=== PATIENT | female | born 1940 | race Caucasian/White ===

== ENCOUNTER 2021-05-18 07:40 | Inpatient (IN) ==
--- NOTE | 2021-05-11 12:24 | Anesthesiology Consultation ---
Date of Service May 11, 2021 Assessment & Plan (1) Encounter for pre-operative examination: ECG 04/21/2021: LBBB without previous ECGs for comparison. Request to be sent to PCP regarding any additional information. Pleural effusion following emergent gastric surgery reportedly small, chart listing pulmonology provider as Gene Pham. Request to be sent to pulm for last note. COVID: 05/13 at [facility]. Chart Review Chart Review: Pending: Refer to Additional Notes / Consult section and Patient NOT seen in Pre Admission Testing History Surgery Operation Date: 05/18/21 10:15 Proposed Procedures p Open Repair Ventral Hernia With Mesh - Reanna Julio MD Height/Weight Height: 5 ft 8 in Weight: 81.647 kg Allergies Allergy/AdvReac Type Severity Reaction Status Date / Time amoxicillin Allergy Intermediate HIVES Unverified 05/11/21 10:22 latex Allergy blisters Verified 05/11/21 10:22 Medications Home Medications Medication Instructions Recorded Confirmed Last Taken acetaminophen 325 mg capsule 325 mg PO QID PRN 05/11/21 05/11/21 Unknown (Tylenol) aripiprazole 5 mg tablet (Abilify) 2.5 mg PO HS 05/11/21 05/11/21 Unknown cholecalciferol (vitamin D3) 25 25 mcg PO 5XD 05/11/21 05/11/21 Unknown mcg (1,000 unit) tablet (Vitamin D3) magnesium hydroxide 400 mg/5 mL 400 mg PO HS 05/11/21 05/11/21 Unknown oral suspension (Milk of Magnesia) Past Medical History Medical History Anxiety Fibromyalgia History of ileus Osteoporosis Pleural effusion says developed following emergent gastric surgery in 2019 -- has had drained in past but still with "small" pleural effusion that is being monitored --> follows with [facility] Spinal stenosis Ventral hernia Past Family History Family History Other No family history of adverse response to anesthesia Past Surgical History Surgical History History of appendectomy History of colonoscopy History of esophagogastroduodenoscopy (EGD) History of exploratory laparotomy History of gastric surgery emergent surgery 2019 r/t large hiatal hernia History of repair of hiatal hernia History of thoracentesis last in 2019 Social History Smoking Status: Never smoker Do You Dip or Chew Tobacco: No Hx Alcohol Use: No Hx Substance Use: No substance use type: does not use Testing Laboratory Results BUN 10 Cr 0.9 Na 140 K 4.8 Chl 102 CO2 27 glucose 105 WBC 8 RBC 4 Hgb 14.6 Hct 44 Plt 336 Electrocardiogram Date: 04/21/21 Normal sinus rhythm. Possible left atrial enlargement. LBBB. No previous ECGs for comparison.
[~2021-05-18 07:40] MED LIST: CLINDAMYCIN 600 MG/54 ML BAG IV SCH; LACTATED RINGER'S 1,000 ML IV SCH
[2021-05-18] MEDS ORDERED: BUPIVACAINE 0.5 % 5 MG/1 ML MPF 30ML VIAL ONE (09:42)
[2021-05-18] MEDS ORDERED: LIDOCAINE 1% LOCAL 20 ML VIAL ONE (09:42)
[2021-05-18] MEDS ORDERED: BACITRACIN OINT 15 GM TUBE ONE (09:42)
--- NOTE | 2021-05-18 09:44 | History & Physical Bridge Note ---
Date of Service May 18, 2021 History & Physical Bridge Note I have examined the patient, reviewed the History & Physical and in the interval since the performance of the History & Physical I have noted the following changes of clinical significance: no changes noted
[2021-05-18] MEDS ORDERED: fentaNYL citrate 100 MCG/2 ML VIAL ONE ×2 (10:46→11:58)
[2021-05-18] MEDS ORDERED: ATROPINE SULFATE 0.1 MG/ML 10ML SYR IV PRN (11:29)
[2021-05-18] MEDS ORDERED: ePHEDrine sulfate 50 MG/ML AMP IV PRN (11:29)
[2021-05-18] MEDS ORDERED: ONDANSETRON INJ 2 MG/ML 2 ML VIAL IV PRN ×2 (11:29→12:51)
[2021-05-18] MEDS ORDERED: fentaNYL citrate 100 MCG/2 ML VIAL IV PRN (11:29)
[2021-05-18] MEDS ORDERED: PROPOFOL IV EMULSION 10 MG/ML 20 ML VIAL IV ONE (11:51)
[2021-05-18] MEDS ORDERED: PHENYLEPHRINE HCL 10 MG/ML VIAL ONE (11:51)
[2021-05-18] MEDS ORDERED: LIDOCAINE 2% 2 ML VIAL/AMP(20MG/ML) INFIL ONE (11:51)
[2021-05-18] MEDS ORDERED: ePHEDrine sulfate 50 MG/ML SYR ONE (11:51)
[2021-05-18] MEDS ORDERED: DEXAMETHASONE SOD INJ 4 MG/ML VIAL ONE (11:51)
[2021-05-18] MEDS ORDERED: ROCURONIUM BROMIDE 10 MG/ML 5 ML VIAL IV ONE (11:51)
[2021-05-18] MEDS ORDERED: NEOSTIGMINE METHYLSULFATE 1 MG/ML 10ML VIAL ONE (11:51)
[2021-05-18] MEDS ORDERED: GLYCOPYRROLATE 0.2 MG/ML VIAL ONE (11:51)
[2021-05-18] MEDS ORDERED: ONDANSETRON INJ 2 MG/ML 2 ML VIAL ONE (11:51)
[2021-05-18] MEDS ORDERED: ACETAMINOPHEN 1000 MG/100 ML IV IV ONE (11:53)
[2021-05-18] MEDS ORDERED: HYDROmorphone INJ 2 MG/ML SYR/VIAL ONE (12:13)
--- NOTE | 2021-05-18 12:40 | Post Operative Brief Note ---
Immediate Post Op Note v1 Date of Surgery May 18, 2021 Pre & Post Diagnosis Operation Date: 05/18/21 09:40 Pre-Op Diagnosis: multiple Hernia of Abdominal Wall Post-Op Diagnosis: multiple Hernia of Abdominal Wall I identified the patient and participated in the time-out.: Yes Procedure Operation Date: 05/18/21 09:40 Actual Procedures p Open Ventral Hernia Repair with Mesh , lysis of adhesion, - Reanna Julio MD Surgeon Reanna Julio MD Risk Control Specialist surgical oncologist Estimated Blood Loss 10 Findings Consistent with Post-Op Diagnosis 4 ventral hernia, total hernia size about 12x20 cm Fluids 1000ml Specimens hernia sac Anesthesia Type General Complications none Disposition Accompanied Patient To Recovery: Yes
--- NOTE | 2021-05-18 14:38 | Anesthesiology Progress Note ---
Date of Service May 18, 2021 Anesthesia Post Procedure Vital Signs Vital Signs: Temp Pulse Pulse Resp BP BP Pulse Ox 05/18/21 14:15 60 13 160/71 H 99 05/18/21 14:00 72 11 L 156/64 H 98 05/18/21 13:45 57 L 13 147/75 H 98 05/18/21 13:30 36.2 C L 80 19 160/90 H 99 05/18/21 13:20 67 14 159/77 H 99 05/18/21 13:10 76 14 147/68 H 99 05/18/21 13:00 78 17 158/83 H 100 05/18/21 12:50 36.2 C L 84 17 147/78 H 99 05/18/21 08:17 36.8 C 100 H 20 181/88 H 97 Pain Intensity Abdomen: Pain Intensity: 2 Transfer of Care Handoff Completed per policy Notes Mental Status: alert / awake / arousable Patient Amnestic to Procedure: Yes Nausea / Vomiting: adequately controlled Pain: adequately controlled Airway Patency, RR, SpO2: stable & adequate BP & HR: stable & adequate Hydration State: stable & adequate Anesthetic Complications: no major complications apparent
[2021-05-18] MEDS: LACTATED RINGER'S 1,000 ML IV SCH ×2 (14:55→22:46)
[2021-05-18] MEDS ORDERED: MAGNESIUM HYDROXIDE SUSP 30 ML UDC PO PRN (15:01)
[2021-05-18] MEDS: HYDROmorphone INJ 0.5 MG/0.5 ML SYR IV PRN (15:02)
[2021-05-18] MEDS ORDERED: INFLUENZA VACCINE HIGH DOSE PF 65+ 0.7 ML SYR IM ONE (15:30)
[2021-05-18] MEDS: CIPROFLOXACIN / D5W 400 MG/200 ML BAG IV SCH (16:52)
[2021-05-18] MEDS: CHOLECALCIFEROL 1,000 UNITS 25 MCG TAB PO SCH ×2 (16:54→17:46)
--- NOTE | 2021-05-18 17:30 | Consultation ---
Date of Consultation May 18, 2021 Assessment & Plan (1) Ventral hernia: 80 yr old F who underwent elective open ventral hernia repair with mesh of multiple hernias, 4, total hernia size [id number] POD #[address] Julio. EBL: 10ml tolerated procedure well pain/wound management per surgery IV antibiotics per surgery monitor h/h encourage incentive spirometry clear liquid diet, advance as per surgery consult PT/OT post operatively is hypertensive, 161/90, likely in setting of pain She was started on metoprolol tartrate by general surgery - will discontinue for now and monitor as pain is more controlled (2) Depression with anxiety: Continue Abilify Mood stable (3) Osteoporosis: Continue vitamin D (4) Constipation: Placed on senna S daily She takes milk of mag at home Dispo: med/surg PCP: Dr. Luevano FULL CODE Pt was seen and examined in collaboration with Dr. Montano, please see addendum Thank you for this consultation. We will follow the patient with you during their hospital stay. You can reach a member of the [facility] Hospitalist Team 14/03 via hospitalist role on tiger text. Supervising Physician Co-Signing Physician Notes Patient is an 80-year-old female with history of anxiety, depression and other medical problems was consulted for postop medical management after having open ventral hernia repair with mesh, lysis of adhesions by Dr. Julio. Patient is doing well postoperatively. Pain at surgical site is currently controlled. Denies any chest pain, dyspnea, dizziness, nausea. Postoperatively blood pressure was noted to be elevated. On exam patient is moderately built and nourished, not in distress, normocephalic atraumatic, lungs are clear to auscultation, normal breath sounds, S1-S2, no murmur, no pedal edema, abdomen: Surgical site in dressing,+ binder, decreased bowel sounds, alert, awake, oriented, grossly no focal deficits. Patient is consulted for postop medical management. Wound care, diet as per primary team. Monitor for postop anemia. Continue incentive spirometry. Will administer a dose of amlodipine for blood pressure control. Continue IV fluids for now. I personally reviewed the record. Patient is interviewed and examined at bedside. Patient's care is coordinated with Amanda Tanner PA-C. Please refer to the documentation above for details of patient's presentation and for discussion of other issues. History of Present Illness Requesting Physician: Dr. Julio Reason for Consultation: Post op medical management. Attending Physician: Reanna Julio MD History of Present Illness This is a 80-year-old female who has significant past medical history of depression with anxiety, HLD, GERD, hiatal hernia, restless leg syndrome, macular degeneration, osteoporosis, history of right pleural effusion status post thoracentesis negative for malignancy who presents for elective hernia repair by Dr. Julio. She tolerated the procedure well. Unfortunately patient had severe hiatal hernia in the past with rupture requiring emergent surgery. Approximately 1 to 2 years ago she began developing pain and protrusion at incision sites. This has caused her constipation requiring her to take daily laxatives. Currently she complains of postoperative pain and, "cramping." She denies any other issues. She denies any fever, chills, sweats, lightheadedness, dizzy, chest pain, shortness with, cough, nausea, vomiting, dysuria, increased urgency or frequency with urination. She did not move her bowels today. She currently complains of feeling hot. Despite being 80 she is relatively healthy. She does lives alone and is , but has a man friend of over 7 years. She typically walks with a walker. She does suffer from depression with anxiety for which is controlled with Abilify. Allergies Allergy/AdvReac Type Severity Reaction Status Date / Time amoxicillin Allergy Intermediate HIVES Unverified 05/18/21 08:12 latex Allergy blisters Verified 05/18/21 08:12 Home Medications Medication Instructions Recorded Confirmed Type acetaminophen 325 mg capsule 325 mg PO QID PRN 05/11/21 05/18/21 History (Tylenol) aripiprazole 5 mg tablet (Abilify) 2.5 mg PO HS 05/11/21 05/18/21 History cholecalciferol (vitamin D3) 25 25 mcg PO 5XD 05/11/21 05/18/21 History mcg (1,000 unit) tablet (Vitamin D3) magnesium hydroxide 400 mg/5 mL 400 mg PO HS PRN 05/11/21 05/18/21 History oral suspension (Milk of Magnesia) Patient History Medical History (Updated 05/18/21 @ 17:48 by Amanda Nelson PA-C) Anxiety Constipation Fibromyalgia History of ileus Osteoporosis Pleural effusion says developed following emergent gastric surgery in 2019 -- has had drained in past but still with "small" pleural effusion that is being monitored --> follows with [facility] Spinal stenosis Ventral hernia Surgical History History of appendectomy History of colonoscopy History of esophagogastroduodenoscopy (EGD) History of exploratory laparotomy History of gastric surgery emergent surgery 2019 r/t large hiatal hernia History of repair of hiatal hernia History of thoracentesis last in 2019 Family History (Updated 05/18/21 @ 17:30 by Amanda Nelson PA-C) Other Breast cancer Colorectal cancer No family history of adverse response to anesthesia Social History Smoking Status: Never smoker Second Hand Exposure: No; Do You Dip or Chew Tobacco: No; Hx Alcohol Use: No Hx Substance Use: No Preferred Language: French Communication Ability: Effective Juvenile Probation Officer Required: No Beliefs That Will Affect Care: None and Episcopalian Episcopalian Beliefs: Orthodox Current Living Situation: Alone Feels Safe at Home: Yes Safety Concerns: Feels Safe At This Time Assistive Devices: Denture - Upper, Glasses and Oxygen - Continuous Review of Systems Review of Systems: All systems reviewed & are unremarkable except as noted in HPI & below Physical Exam Physical Exam: Constitutional: WD/WN, F vitals as above, NAD, sitting up in bed, pleasant, conversing easily Head: Normocephalic, Atraumatic Eyes: PERRL, conjunctivae normal, anicteric sclerae ENMT: external ear and nose normal, oropharynx normal Neck: trachea midline, no thyromegaly normal visual inspection Respiratory: normal respiratory effort, lungs clear to auscultation, no wheeze, rales, rhonchi. Normal insp/exp effort, no accessory muscle use Cardiovascular: RRR, 2/6SEM RUSB, no edema, b/l SCDS Vessels: no JVD or carotid bruit Chest: normal inspection of chest Abdomen: + abd binder, normal bowel sounds, soft Musculoskeletal: no cyanosis or clubbing, AROM x 4 Skin: no rashes, warm and dry normal turgor Neurologic: PERRL, EOMI, accommodation nl, no face palsy, no dysarthria CN's II-XI intact bilaterally and moves all extremities Psychiatric: A+Ox3, euthymic affect : deferred Results & Data ([facility]) Vital Signs (Past 12 Hours) Vital Signs Temp Pulse Pulse Pulse Resp BP BP 05/18/21 16:40 36.3 C L 86 18 158/82 H 05/18/21 15:40 36.1 C L 100 H 16 169/91 H 05/18/21 15:05 36.2 C L 77 14 159/74 H 05/18/21 14:40 36.3 C L 61 14 172/91 H 05/18/21 14:15 60 13 160/71 H 05/18/21 14:00 72 11 L 156/64 H 05/18/21 13:45 57 L 13 147/75 H 05/18/21 13:30 36.2 C L 80 19 160/90 H 05/18/21 13:20 67 14 159/77 H 05/18/21 13:10 76 14 147/68 H 05/18/21 13:00 78 17 158/83 H 05/18/21 12:50 36.2 C L 84 17 147/78 H 05/18/21 08:17 36.8 C 100 H 20 181/88 H Pulse Ox 05/18/21 16:40 96 05/18/21 15:40 97 05/18/21 15:05 97 05/18/21 14:40 99 05/18/21 14:15 99 05/18/21 14:00 98 05/18/21 13:45 98 05/18/21 13:30 99 05/18/21 13:20 99 05/18/21 13:10 99 05/18/21 13:00 100 05/18/21 12:50 99 05/18/21 08:17 97 Laboratory Results No lab work to review CBC and CMP ordered for a.m. Diagnostic Findings CXR: Pre op Pleural-based opacity in right lung base similar to previous study representing either pleural effusion or pleural fibrosis, atelectasis and/or infiltrate in the right lung base has increased. 04/13/2021 She was seen and evaluated by pulmonology and was to undergo pleural effusion; however only small amount of fluid present and therefore not performed. Medications Administered Medication List Hydromorphone HCl (Hydromorphone Inj 0.5 Mg/0.5 Ml Syr) 0.5 mg IV Q6H PRN PRN Reason: Pain Stop: 06/01/21 14:39 Last Admin: 05/18/21 15:02 Dose: 0.5 mg Documented by: [id number] Lactated Ringer's (Lr) 1,000 mls @ 80 mls/hr IV .[id number] [facility] Stop: 06/17/21 14:59 Last Admin: 05/18/21 14:55 Dose: 80 mls/hr Documented by: [id number] Ciprofloxacin (Cipro / D5w) 400 mg in 200 mls @ 100 mls/hr IV Q12H [facility]; Protocol Stop: 05/19/21 14:59 Last Admin: 05/18/21 16:52 Dose: 100 mls/hr Documented by: [id number] Ondansetron HCl (Ondansetron Inj 2 Mg/Ml 2 Ml Vial) 4 mg IV Q6H PRN PRN Reason: Nausea Stop: 06/17/21 12:50 Last Admin: 05/18/21 15:02 Dose: 4 mg Documented by: [id number] Vitamin D (Cholecalciferol 1,000 Units 25 Mcg Tab) 1,000 units PO [id number] [facility] Stop: 06/17/21 15:59 Last Admin: 05/18/21 17:46 Dose: 1,000 units Documented by: [id number] Admin: 05/18/21 16:54 Dose: 1,000 units Documented by: [id number] Discontinued Medications Bacitracin (Bacitracin Oint 15 Gm Tube) Confirm Administered Dose 45 appln .ROUTE .STK-MED ONE Stop: 05/18/21 09:43 Last Admin: 05/18/21 12:25 Dose: 45 appln Documented by: [id number] Bupivacaine HCl (Bupivacaine 0.5 % 5 Mg/1 Ml Mpf 30ml Vial) Confirm Administered Dose 30 ml .ROUTE .STK-MED ONE Stop: 05/18/21 09:43 Last Admin: 05/18/21 12:17 Dose: 17.5 ml Documented by: [id number] Fentanyl Citrate (Fentanyl Citrate 100 Mcg/2 Ml Vial) 50 mcg IV Q5M PRN PRN Reason: PACU Use Only-Pain Stop: 05/18/21 19:29 Last Admin: 05/18/21 13:11 Dose: 50 mcg Documented by: [id number] Lactated Ringer's (Lr) 1,000 mls @ 15 mls/hr IV .Q24H [facility] Stop: 05/19/21 05:59 Last Infusion: 05/18/21 10:48 Dose: 0 mls/hr Documented by: [id number] Admin: 05/18/21 08:20 Dose: 15 mls/hr Documented by: [id number] Clindamycin Phosphate (Cleocin) 600 mg in 54 mls @ 100 mls/hr IV PREOP [facility] Stop: 05/18/21 18:00 Last Infusion: 05/18/21 14:54 Dose: 0 mls/hr Documented by: [id number] Admin: 05/18/21 10:48 Dose: 100 mls/hr Documented by: [id number] Lidocaine HCl (Lidocaine 1% Local 20 Ml Vial) Confirm Administered Dose 20 ml .ROUTE .K-MED ONE Stop: 05/18/21 09:43 Last Admin: 05/18/21 12:19 Dose: 17.5 ml Documented by: [id number] ECG Rate (beats per minute): 61 Rhythm: normal sinus Findings: + LBBB
[2021-05-18] MEDS ORDERED: amLODIPine BESYLATE 5 MG TAB PO PRN (18:06)
[2021-05-18] MEDS ORDERED: METOPROLOL TARTRATE 25 MG TAB PO SCH (21:00)
[2021-05-18] MEDS: ARIPiprazole 5 MG TAB PO SCH (21:18)
[2021-05-18] MEDS: DOCUSATE SODIUM/SENNA 50/8.6MG TAB PO SCH (21:18)
--- NOTE | 2021-05-18 22:41 | Operative Report (OR) ---
DATE OF PROCEDURE: 05/18/2021. PREOPERATIVE DIAGNOSIS: Multiple ventral hernias on abdominal wall. POSTOPERATIVE DIAGNOSIS: Multiple ventral hernias on abdominal wall. PROCEDURE: Open repair of multiple ventral hernia on abdominal wall with mesh. SURGEON: Reanna Julio MD. DISTRIBUTION SPECIALIST: Christine Ham PA-C. ANESTHESIA: General. ESTIMATED BLOOD LOSS: About 20 mL. FINDINGS: Four ventral hernias: 1. Ventral hernia size about 8 x 8 cm. 2. Ventral hernia size about 2 x 2 cm. 3. Ventral hernia size about 1 x 1 cm. 4. Ventral hernia size about 1 x 1 cm. COMPLICATIONS: None. INDICATIONS FOR THE PROCEDURE: This is an 80-year-old female who presented with symptomatic recurren ce multiple ventral hernias and I recommended to do open repair of multiple ventral hernias with mesh . I did talk to the patient about the benefit, risk, alternate procedure. I indicated the risks may include, but not limited to, such as bleeding, infection, hernia recurrence, complication related to mesh, seroma, injury to other organs, myocardial infarction, DVT, stroke, even . The patient u nderstands and she signed informed consent and I answered all questions. DETAILS OF PROCEDURE: After I identified the patient and verified the procedure, we brought the patrick ent to the OR, put the patient in the supine position on the OR table. The patient received SCD on b ilateral legs to prevent DVT. Also, patient received an IV for prophylactic antibiotic. The patient received general anesthesia without difficulty. Abdomen was prepped and draped in routine sterile f ashion. After timeout and the patient has a significant long midline scar. I removed the midline sc ar using a midline incision and get in the abdomen without difficulty. Again, a lot of adhesions. W e take down the adhesions, then we found the patient on the left side has one ventral hernia size abo ut 8 x 8 cm, also the left side below umbilicus there was the hernia of 2 x 2 cm, there were 2 small ventral hernias near the midline about 1 x 1 cm each. At this moment, once we mobilized the adhesion s and we take down the hernia sac, I sent to pathology and then I decided to use 1 mesh to cover 4 he rnias. The 4 hernias size combined to one about 12 x 20 cm. I chose a 15 x 26 cm mesh to repair the 4 hernias. I used 0 Ethibond suture mesh to the fascial layer continuous running and 360-degree. Re checked, the mesh seated nicely, no tension. Hemostasis obtained, then I closed the subcutaneous lay er by using 2-0 Vicryl continuous running, closed skin by using staple. Then, we put the dressing on . The patient tolerated the procedure well. All instrument, needle, sponge count were correct x2 at the end of the case. The patient was transferred to recovery room in stable condition. Later on, w koffi will admit the patient to the hospital overnight. After the procedure, I did talk to the patient ab out the OR finding and the procedure we did, patient understands. The specimen was sent to pathology . The licensed nursing assistant, Christine, was necessary for this procedure. Her role was exposure and retraction . Job ID: [id number]
[2021-05-18] MEDS: ACETAMINOPHEN 325 MG TAB PO PRN (22:47)
[2021-05-19] MEDS: HYDROmorphone INJ 0.5 MG/0.5 ML SYR IV PRN (03:37)
[2021-05-19] MEDS: CIPROFLOXACIN / D5W 400 MG/200 ML BAG IV SCH (03:38)
[2021-05-19] MEDS ORDERED: CLINDAMYCIN 600 MG/54 ML BAG IV SCH (06:00)
[2021-05-19] MEDS: CHOLECALCIFEROL 1,000 UNITS 25 MCG TAB PO SCH ×5 (06:18→15:55)
[2021-05-19 08:07] LABS: Hematocrit (blood only) 40.5 % (37-47); Hemoglobin 13.3 g/dL (12.0-16.0); Immature Granulocytes # (auto) 0.03 K/uL (0.00-0.02); Immature Granulocytes % (auto) 0.2 %; Lymphocytes # (auto) 1.71 K/uL (1.2-3.4); Lymphocytes % (auto) 11.5 %; Mean Corpuscular Hemoglobin 31.6 pg (25-34); Mean Corpuscular Hgb Conc 32.8 g/dL (32-36); Mean Corpuscular Volume 96.2 fL (80-100); Mean Platelet Volume 8.9 fL (7.4-10.4); Monocytes # (auto) 1.18 K/uL (0.11-0.59); Monocytes % (auto) 7.9 %; Neutrophils # (auto) 11.99 K/uL (1.4-6.5); Neutrophils % (auto) 80.4 %; Platelet Count 349 K/uL (130-400); RDW Coefficient of Variation 14.1 % (11.5-14.5); RDW Standard Deviation 49.7 fL (36.4-46.3); Red Blood Count 4.21 M/uL (4.2-5.4); White Blood Count 14.91 K/uL (4.8-10.8)
[2021-05-19 08:40] LABS: BUN Creatinine Ratio 17.5 (10-20); Calcium 9.3 mg/dl (8.5-10.1); Creatinine Clr Calc Pharmacy 61.2 ml/min; Est GFR (African American) 79.6 ml/min; Est GFR (Non-African American) 68.7 ml/min; Potassium 4.6 mmol/L (3.5-5.1)
[2021-05-19 08:43] LABS: Albumin Globulin Ratio 0.8 (0.9-2); Bilirubin,Total 0.6 mg/dl (0.2-1); Globulin 3.7 gm/dl (2.5-4.0); Total Protein 6.7 gm/dl (6.4-8.2)
[2021-05-19] MEDS: ACETAMINOPHEN 325 MG TAB PO PRN ×2 (08:51→15:55)
[2021-05-19] MEDS ORDERED: amLODIPine BESYLATE 5 MG TAB PO ONE (09:08)
--- NOTE | 2021-05-19 09:35 | Surgery Progress Note ---
Date of Service May 19, 2021 Assessment & Plan (1) Ventral hernia: Plan: POD # 1 s/p open ventral hernia repair x 4 with large mesh -afebrile, vitals stable other than hypertensive at times (after movement, standing up per patient) - no n,v - moderate postop pain with movement - leukocytosis of 14k today, likely postop Plan: Patient still with moderate postop pain which is limiting her movement. Advised patient of as needed narcotic as needed for pain. Can alternate with Tylenol. Given limited range of movement secondary to pain she likely will need further pain management prior to discharge. She lives at home alone but niece is planning to come stay with her once discharged. Regular diet for lunch continue postop abx repeat am cbc incentive spirometry SCDs Discussed with Dr. Julio who is to see patient later today Admission and Anticipated Discharge Date Admission Date: May 18, 2021 Subjective having moderate pain at belly button , just took two Tylenol for pain no nausea or vomiting no chest pain or shortness of breath wearing abdominal binder but it is uncomfortable sitting and lying down. States she plans to go home on discharge and her niece will be staying with her at home. No stairs in the house. Physical Exam Constitutional: WD/WN, vitals as above no acute distress and not ill appearing Respiratory: normal respiratory effort; no respiratory distress and no labored breathing Gastrointestinal (Abdomen): Inspection/Auscultation: abdomen normal to inspection, + abdominal surgical incision (covered with dry dressing) and + hypoactive bowel sounds; abdomen not distended and + abnormal bowel sounds Percussion/Palpation: + abdomen tender (midline at umbilicus) and abdomen soft; no guarding and abdomen not rigid Skin: no rashes, warm and dry Psychiatric: A+Ox3, euthymic affect Results & Data ([facility]) Vital Signs (Past 12 Hours) Vital Signs Temp Pulse Resp BP Pulse Ox 05/19/21 07:42 36.9 C 75 18 161/72 H 95 05/19/21 03:30 36.6 C 77 20 158/74 H 96 05/18/21 22:51 36.4 C L 73 16 175/73 H 96 Laboratory Results 05/19/21 05/19/21 Range/Units 07:20 07:20 WBC 14.91 H (4.8-10.8) K/uL RBC 4.21 (4.2-5.4) M/uL Hgb 13.3 (12.0-16.0) g/dL Hct 40.5 (37-47) % MCV 96.2 (80-100) fL MCH 31.6 (25-34) pg MCHC 32.8 (32-36) g/dL RDW Std Deviation 49.7 H (36.4-46.3) fL RDW Coeff of Leonel 14.1 (11.5-14.5) % Plt Count 349 (130-400) K/uL MPV 8.9 (7.4-10.4) fL Immature Gran % (Auto) 0.2 % Neut % (Auto) 80.4 % Lymph % (Auto) 11.5 % [place] % (Auto) 7.9 % Eos % (Auto) 0.0 % Baso % (Auto) 0.0 % Neut # (Auto) 11.99 H (1.4-6.5) K/uL Lymph # (Auto) 1.71 (1.2-3.4) K/uL [place] # (Auto) 1.18 H (0.11-0.59) K/uL Eos # (Auto) 0.00 (0-0.5) K/uL Baso # (Auto) 0.00 (0-0.2) K/uL Immature Gran # (Auto) 0.03 H (0.00-0.02) K/uL Sodium 133 L (136-145) mmol/L Potassium 4.6 (3.5-5.1) mmol/L Chloride 102 (98-107) mmol/L Carbon Dioxide 23 (21-32) mmol/L Anion Gap 7.0 (3-11) BUN 14 (7-18) mg/dl Creatinine 0.80 (0.6-1.2) mg/dl Est Cr Clr Drug Dosing 61.2 ml/min Est GFR ( Amer) 79.6 ml/min Est GFR (Non-Af Amer) 68.7 ml/min BUN/Creatinine Ratio 17.5 (10-20) Glucose 128 H (70-99) mg/dl Calcium 9.3 (8.5-10.1) mg/dl Total Bilirubin 0.6 (0.2-1) mg/dl AST 16 (15-37) U/L ALT 18 (12-78) U/L Alkaline Phosphatase 84 (45-117) U/L Total Protein 6.7 (6.4-8.2) gm/dl Albumin 3.0 L (3.4-5.0) gm/dl Globulin 3.7 (2.5-4.0) gm/dl Albumin/Globulin Ratio 0.8 L (0.9-2)
[2021-05-19] MEDS: LACTATED RINGER'S 1,000 ML IV SCH (10:52)
--- NOTE | 2021-05-19 13:27 | Hospitalist Progress Note ---
Date of Service May 19, 2021 Assessment & Plan (1) Ventral hernia: Plan: -POD#1 elective open ventral hernia repair with mesh of multiple hernias, 4, total hernia size [id number] by Dr. Julio -EBL 10cc -pain/wound management per surgery -IV antibiotics per surgery -monitor CBC - WBC 14K, hgb 13.3 -encourage incentive spirometry -clear liquid diet, advance as per surgery -PT/OT (2) Elevated BP without diagnosis of hypertension: Plan: -BP elevated in the setting of pain -received one dose amlodipine 5mg 05/18 -BP improving with pain control (3) Depression with anxiety: Plan: -Mood stable, continue Abilify (4) Osteoporosis: Plan: -Continue vitamin D (5) Constipation: Plan: -on senna S daily (6) DVT prophylaxis: Plan: -SCDs as per surgery, consider pharmacologic prophylaxis if hospitalization is prolonged Thank you for this consultation. We will follow the patient with you during their hospital stay. You can reach a [facility] via the [facility] role in [place] Text. Admission and Anticipated Discharge Date Admission Date: May 18, 2021 Supervising Physician Co-Signing Physician Notes Patient is seen and examined at bedside. States having abdominal pain at surgical site. Blood pressure elevated likely secondary to pain. + Flatus, No BM yet. Tolerating clear liquid diet. Denies any chest pain, dyspnea, dizziness, nausea. On exam patient is moderately built and nourished, not in distress, normocephalic atraumatic, lungs are clear to auscultation, normal breath sounds, S1-S2, no murmur, no pedal edema, abdomen: Surgical site in dressing,+ binder, decreased bowel sounds, alert, awake, oriented, grossly no focal deficits. Ventral hernia S/P elective open ventral hernia repair with mesh POD #1. Tolerating clear liquid diet. Pain control. Leukocytosis likely reactive. BP elevated likely due to pain. Monitor for postop anemia. Continue incentive spirometry. I personally reviewed the record. Patient is interviewed and examined at bedside. Patient's care is coordinated with Anabel Marti STEAM DISTRIBUTION SUPERVISOR. Please refer to the documentation above for details of patient's presentation and for discussion of other issues. Subjective Patient seen and examined. Resting in bed. Reports incisional abdominal pain with minimal movement. No nausea, tolerating clear liquid diet. Denies chest pain or shortness of breath. No lightheadedness or dizziness. No flatus or BM yet. Voiding without difficulty. Physical Exam Constitutional: WD/WN, vitals as above Respiratory: normal respiratory effort, lungs clear to auscultation Cardiovascular: Rate/Rhythm: regular rate and regular rhythm Vessels: normal peripheral pulses Extremities: no edema Gastrointestinal (Abdomen): Inspection/Auscultation: normal bowel sounds; abdomen not distended Percussion/Palpation: + abdomen tender (Incisional tenderness) and abdomen soft Mid abdominal surgical dressing dry and intact Skin: no rashes, warm and dry Neurologic: no focal motor deficits Psychiatric: A+Ox3, euthymic affect Results & Data Results & Data ([facility]) Vital Signs (Past 12 Hours) Vital Signs Temp Pulse Resp BP Pulse Ox 05/19/21 07:42 36.9 C 75 18 161/72 H 95 05/19/21 03:30 36.6 C 77 20 158/74 H 96 Laboratory Results Short CBC 05/19/21 Range/Units 07:20 WBC 14.91 H (4.8-10.8) K/uL Hgb 13.3 (12.0-16.0) g/dL Hct 40.5 (37-47) % Plt Count 349 (130-400) K/uL BMP 05/19/21 07:20 Sodium 133 L Potassium 4.6 Chloride 102 Carbon Dioxide 23 BUN 14 Creatinine 0.80 Glucose 128 H Calcium 9.3 Liver Function 05/19/21 Range/Units 07:20 Total Bilirubin 0.6 (0.2-1) mg/dl AST 16 (15-37) U/L ALT 18 (12-78) U/L Alkaline Phosphatase 84 (45-117) U/L Albumin 3.0 L (3.4-5.0) gm/dl
[2021-05-19] MEDS: oxyCODONE/ACETAMINOPHEN 5mg/325mg TAB PO PRN (17:35)
[2021-05-19] MEDS: DOCUSATE SODIUM/SENNA 50/8.6MG TAB PO SCH (20:02)
[2021-05-19] MEDS: ARIPiprazole 5 MG TAB PO SCH (20:02)
[2021-05-20] MEDS: oxyCODONE/ACETAMINOPHEN 5mg/325mg TAB PO PRN ×3 (00:43→11:38)
[2021-05-20] MEDS: CHOLECALCIFEROL 1,000 UNITS 25 MCG TAB PO SCH ×5 (06:06→17:27)
[2021-05-20 07:00] LABS: Hematocrit (blood only) 39.5 % (37-47); Hemoglobin 12.8 g/dL (12.0-16.0); Mean Corpuscular Hemoglobin 31.3 pg (25-34); Mean Corpuscular Hgb Conc 32.4 g/dL (32-36); Mean Corpuscular Volume 96.6 fL (80-100); Mean Platelet Volume 8.7 fL (7.4-10.4); Platelet Count 318 K/uL (130-400); RDW Coefficient of Variation 14.2 % (11.5-14.5); RDW Standard Deviation 50.7 fL (36.4-46.3); Red Blood Count 4.09 M/uL (4.2-5.4); White Blood Count 9.73 K/uL (4.8-10.8)
[2021-05-20 07:37] LABS: BUN Creatinine Ratio 11.9 (10-20); Calcium 9.3 mg/dl (8.5-10.1); Est GFR (African American) 76.1 ml/min; Est GFR (Non-African American) 65.7 ml/min; Potassium 3.9 mmol/L (3.5-5.1)
[2021-05-20] MEDS: amLODIPine BESYLATE 5 MG TAB PO SCH (09:21)
[2021-05-20] MEDS ORDERED: POLYETHYLENE (MIRALAX) 17 GM PACK PO ONE (09:35)
[2021-05-20] MEDS ORDERED: bisacodyL 10 MG SUPP PR STA (09:35)
--- NOTE | 2021-05-20 09:40 | Surgery Progress Note ---
Date of Service May 20, 2021 Assessment & Plan (1) Ventral hernia: Plan: POD # 2 s/p open ventral hernia repair x 4 with large mesh -afebrile, vitals stable other than hypertensive at times (after movement, standing up per patient) - no n,v - moderate postop pain with movement - abdomen distended today, no return of bowel function yet - leukocytosis of 14k today, likely postop Plan: Continue PO Percocet prn pain, try to limit narcotics if possible. Tylenol as needed for mild to moderate pain. continue ambulation incentive spirometry SCDs Dr. Julio has seen and examined pt, agrees with above. Admission and Anticipated Discharge Date Admission Date: May 18, 2021 Subjective feeling okay, feels likes someone punch me in the stomach feels bloated has not passed any gas and doesn't feel like she needs to no nausea or vomiting pain with bending over and getting out of bed. Physical Exam Constitutional: WD/WN, vitals as above no acute distress and not ill appearing Gastrointestinal (Abdomen): Inspection/Auscultation: + abdomen distended (moderate) and + abdominal surgical incision (covered with dry dressing) Percussion/Palpation: + abdomen tender (midline incision) and abdomen soft; no guarding and abdomen not rigid Skin: no rashes, warm and dry Psychiatric: A+Ox3, euthymic affect Results & Data ([facility]) Vital Signs (Past 12 Hours) Vital Signs Temp Pulse Resp BP Pulse Ox 05/20/21 07:38 36.7 C 71 16 151/68 H 91 05/19/21 23:45 36.8 C 82 16 147/73 H 93 Laboratory Results 05/20/21 05/20/21 Range/Units 06:42 06:42 WBC 9.73 (4.8-10.8) K/uL RBC 4.09 L (4.2-5.4) M/uL Hgb 12.8 (12.0-16.0) g/dL Hct 39.5 (37-47) % MCV 96.6 (80-100) fL MCH 31.3 (25-34) pg MCHC 32.4 (32-36) g/dL RDW Std Deviation 50.7 H (36.4-46.3) fL RDW Coeff of Leonel 14.2 (11.5-14.5) % Plt Count 318 (130-400) K/uL MPV 8.7 (7.4-10.4) fL Sodium 138 (136-145) mmol/L Potassium 3.9 D (3.5-5.1) mmol/L Chloride 105 (98-107) mmol/L Carbon Dioxide 28 (21-32) mmol/L Anion Gap 5.0 (3-11) BUN 10 (7-18) mg/dl Creatinine 0.83 (0.6-1.2) mg/dl Est Cr Clr Drug Dosing 59.0 ml/min Est GFR ( Amer) 76.1 ml/min Est GFR (Non-Af Amer) 65.7 ml/min BUN/Creatinine Ratio 11.9 (10-20) Glucose 108 H (70-99) mg/dl Calcium 9.3 (8.5-10.1) mg/dl
--- NOTE | 2021-05-20 12:49 | Hospitalist Progress Note ---
Date of Service May 20, 2021 Assessment & Plan (1) Ventral hernia: Plan: -POD#2 elective open ventral hernia repair with mesh of multiple hernias, 4, total hernia size [id number] by Dr. Julio -EBL 10cc -pain/wound management per surgery -IV antibiotics per surgery -monitor CBC - WBC 9.7K, hgb 12.8 -encourage incentive spirometry -clear liquid diet, advance as per surgery -PT/OT (2) Postoperative ileus: Plan: -Worsening abdominal distention today without return of bowel function -Abdomen soft, nontoxic-appearing -Maintain clear liquid diet -Encourage ambulation, try to limit narcotic use -Management as per surgery (3) Elevated BP without diagnosis of hypertension: Plan: -BP elevated in the setting of pain -received one dose amlodipine 5mg 05/18 -BP remains persistently elevated, start amlodipine 5 mg daily (4) Depression with anxiety: Plan: -Mood stable, continue Abilify (5) Osteoporosis: Plan: -Continue vitamin D (6) Constipation: Plan: -on senna S daily (7) DVT prophylaxis: Plan: -SCDs as per surgery, ambulation encouraged, consider pharmacologic prophylaxis if hospitalization is prolonged Thank you for this consultation. We will follow the patient with you during their hospital stay. You can reach a member of the [facility] Hospitalist Team 14/03 via the [facility] role in [place] Text. Admission and Anticipated Discharge Date Admission Date: May 18, 2021 Supervising Physician Co-Signing Physician Notes History and physical exam performed by me. Patient complains only of abdominal distention and has not yet passed flatus or bowel movement since surgery. Physical exam notable for mildly distended abdomen, clean dressing over surgical site, hypoactive bowel sounds Lab work grossly unremarkable Postop ileus Patient on bowel regimen Continue clear liquid and monitor Hypertension Patient's blood pressure is elevated. Doubt this is just solely due to pain from surgery Start amlodipine 5 mg daily monitor Agree with other plans as detailed by Anabel JEONG Subjective Patient seen and examined. Resting in bed. Reports ongoing pain with minimal movement however controlled with Percocet. Reports some worsening abdominal distention/bloating. No flatus or BM. Denies nausea. No chest pain or shortness of breath. Denies lightheadedness and dizziness. Physical Exam Constitutional: WD/WN, vitals as above Respiratory: normal respiratory effort, lungs clear to auscultation Cardiovascular: Rate/Rhythm: regular rate and regular rhythm Vessels: normal peripheral pulses Extremities: no edema Gastrointestinal (Abdomen): Inspection/Auscultation: + abdomen distended; + abnormal bowel sounds (Hypoactive) Percussion/Palpation: + abdomen tender (Incisional) and abdomen soft Mid abdominal surgical dressing in place, dry and intact Skin: no rashes, warm and dry Neurologic: no focal motor deficits Psychiatric: A+Ox3, euthymic affect Results & Data Results & Data ([facility]) Vital Signs (Past 12 Hours) Vital Signs Temp Pulse Resp BP Pulse Ox 05/20/21 07:38 36.7 C 71 16 151/68 H 91 Laboratory Results Short CBC 05/20/21 Range/Units 06:42 WBC 9.73 (4.8-10.8) K/uL Hgb 12.8 (12.0-16.0) g/dL Hct 39.5 (37-47) % Plt Count 318 (130-400) K/uL BMP 05/20/21 06:42 Sodium 138 Potassium 3.9 D Chloride 105 Carbon Dioxide 28 BUN 10 Creatinine 0.83 Glucose 108 H Calcium 9.3
[2021-05-20] MEDS ORDERED: IBUPROFEN 600 MG TAB PO PRN (15:13)
[2021-05-20] MEDS ORDERED: ACETAMINOPHEN 325 MG TAB PO PRN (15:16)
[2021-05-20] MEDS ORDERED: oxyCODONE/ACETAMINOPHEN 5mg/325mg TAB PO PRN (15:16)
[2021-05-20] MEDS: ARIPiprazole 5 MG TAB PO SCH (19:59)
[2021-05-20] MEDS: DOCUSATE SODIUM/SENNA 50/8.6MG TAB PO SCH (19:59)
[2021-05-20 22:39] VITALS: O2SAT 93
[2021-05-21] MEDS: CHOLECALCIFEROL 1,000 UNITS 25 MCG TAB PO SCH ×4 (06:17→16:26)
[2021-05-21 07:40] VITALS: TEMP 97.7
[2021-05-21] MEDS: amLODIPine BESYLATE 5 MG TAB PO SCH (07:40)
[2021-05-21 07:49] LABS: Hematocrit (blood only) 40.9 % (37-47); Hemoglobin 13.7 g/dL (12.0-16.0); Mean Corpuscular Hemoglobin 31.6 pg (25-34); Mean Corpuscular Hgb Conc 33.5 g/dL (32-36); Mean Corpuscular Volume 94.5 fL (80-100); Mean Platelet Volume 8.8 fL (7.4-10.4); Platelet Count 338 K/uL (130-400); RDW Standard Deviation 48.3 fL (36.4-46.3); Red Blood Count 4.33 M/uL (4.2-5.4); White Blood Count 7.67 K/uL (4.8-10.8)
[2021-05-21 08:19] LABS: BUN Creatinine Ratio 9.5 (10-20); Calcium 9.3 mg/dl (8.5-10.1); Creatinine Clr Calc Pharmacy 64.5 ml/min; Est GFR (African American) 84.7 ml/min; Est GFR (Non-African American) 73.1 ml/min
[2021-05-21] MEDS ORDERED: SOD PHOSPHATE/SOD BIPHOSPHATE ENEMA 132 ML BTL PR STA (09:07)
[2021-05-21] MEDS ORDERED: POLYETHYLENE (MIRALAX) 17 GM PACK PO SCH (09:15)
[2021-05-21] MEDS ORDERED: LACTATED RINGER'S 1,000 ML IV SCH (09:15)
--- NOTE | 2021-05-21 10:27 | Hospitalist Progress Note ---
Date of Service May 21, 2021 Assessment & Plan (1) Ventral hernia: Plan: POD#3 elective open ventral hernia repair with mesh of multiple hernias, 4, total hernia size [id number] by Dr. Julio Pain/wound management per surgery Afebrile, no leukocytosis Encourage incentive spirometry, ambulation PT / OT (2) Postoperative ileus: Plan: Abdominal distended but soft, non-tender, still without return of bowel function Discussed plan with surgery - continue clears, fleet enema, LR fluids added Encouraged to continue ambulating, limiting narcotics Pain currently controlled with PRN ibuprofen and tylenol (3) Elevated BP without diagnosis of hypertension: Plan: BP elevated in the setting of pain Received one dose amlodipine 5mg 05/18 BP remains persistently elevated, continue amlodipine 5 mg daily (4) Depression with anxiety: Plan: Mood stable, continue Abilify (5) Osteoporosis: Plan: Continue vitamin D (6) Constipation: Plan: On senna S daily, receiving fleet enema today (7) DVT prophylaxis: Plan: Has been on SCDs, surgery okay to start SQ heparin today Patient seen in collaboration with Dr. Jordan. Please see addendum. Thank you for this consultation. We will follow the patient with you during their hospital stay. You can [facility] via the [facility] in [place] Text. Admission and Anticipated Discharge Date Admission Date: May 20, 2021 Supervising Physician Co-Signing Physician Notes History and physical exam performed by me. Patient reports abd discomfort and constipation are now resolved. Had a BM. Physical exam notable for clean dressing over surgical site Lab work grossly unremarkable Postop ileus resolved Patient on bowel regimen Currently Low fiber diet Hypertension Patient's blood pressure is elevated. Doubt this is just solely due to pain from surgery Continue amlodipine 5 mg daily on discharge Agree with other plans as detailed by Yue Pederson PA-C Subjective Patient seen and examined in 377-2. Abdominal pain improved. Pain controlled on PRN ibuprofen and tylenol, limiting Percocet to severe pain only. Has been ambulating the halls. Tolerating clears, no nausea. Abdominal distention but non-tender. Not passing flatus or post-op bowel movement. No fever, chills, lightheadedness, CP, SOB or dysuria. Review of Systems Review of Systems: At least ten systems reviewed and negative except as noted in the HPI. Physical Exam Physical Exam: General Appearance: WD/WN, vitals as above, NAD, sitting up on side of bed, pleasant, conversing easily Head: normocephalic, atraumatic Eyes: normal inspection, PERRL, conjunctivae normal, anicteric sclerae ENT: external ear and nose normal, oropharynx normal Neck: normal visual inspection, trachea midline, no thyromegaly Respiratory: normal respiratory effort, lungs clear to auscultation, no wheeze, rales, rhonchi. No accessory muscle use Cardiovascular: regular rate, rhythm, no murmur, normal peripheral pulses, no BLE edema. Vessels: no JVD Chest: normal inspection of chest Abdomen/GI: hypoactive bowel sounds, surgical dressing in place, distended but soft, nontender, no hepatosplenomegaly Extremities/Musculoskeletal: no cyanosis or clubbing, extremities motor strength 5/5 Neurologic: PERRL, EOMI, accommodation nl, no face palsy, no dysarthria, CN's II-XI intact bilaterally and moves all extremities Psychiatric: A+Ox3, euthymic affect Skin: no rashes, normal color, warm/dry Results & Data Results & Data ([facility]) Vital Signs (Past 12 Hours) Vital Signs Temp Pulse Pulse Resp BP BP Pulse Ox 05/21/21 07:39 36.5 C 74 16 157/76 H 93 05/20/21 22:38 36.8 C 70 17 133/67 93 Laboratory Results Short CBC 05/21/21 Range/Units 07:24 WBC 7.67 (4.8-10.8) K/uL Hgb 13.7 (12.0-16.0) g/dL Hct 40.9 (37-47) % Plt Count 338 (130-400) K/uL BMP 05/21/21 07:24 Sodium 137 Potassium 4.0 Chloride 102 Carbon Dioxide 30 BUN 7 Creatinine 0.76 Glucose 116 H Calcium 9.3
--- NOTE | 2021-05-21 11:53 | Surgery Progress Note ---
Date of Service May 21, 2021 Assessment & Plan (1) Ventral hernia: Plan: POD # 3 s/p open ventral hernia repair x 4 with large mesh - afebrile, vitals stable other than hypertensive at times - no n,v - moderate postop pain with movement - abdomen distended ,no return of bowel function yet - leukocytosis resolved Plan: Will try fleet enema and another dose of Miralax continue clear liquids until bowel function returns start LR at 80 mls/hr continue ambulation limit narcotics Dr. Julio has seen and examined pt, agrees with above. Admission and Anticipated Discharge Date Admission Date: May 20, 2021 Subjective patient seen this morning with Dr. Julio Pain improving, only taking Tylenol and Ibuprofen No flatus or bowel movement yet however tolerating clear liquids Physical Exam Constitutional: well developed and well nourished; no acute distress and not ill appearing Respiratory: normal respiratory effort Gastrointestinal (Abdomen): Inspection/Auscultation: abdomen normal to inspection and + abdomen distended Percussion/Palpation: + abdomen tender (at incision site) and abdomen soft; no guarding and abdomen not rigid Skin: no rashes, warm and dry + incision (covered with clean and dry dressing) Psychiatric: A+Ox3, euthymic affect Results & Data ([facility]) Vital Signs (Past 12 Hours) Vital Signs Temp Pulse Resp BP Pulse Ox 05/21/21 07:39 36.5 C 74 16 157/76 H 93 Laboratory Results 05/21/21 05/21/21 Range/Units 07:24 07:24 WBC 7.67 (4.8-10.8) K/uL RBC 4.33 (4.2-5.4) M/uL Hgb 13.7 (12.0-16.0) g/dL Hct 40.9 (37-47) % MCV 94.5 (80-100) fL MCH 31.6 (25-34) pg MCHC 33.5 (32-36) g/dL RDW Std Deviation 48.3 H (36.4-46.3) fL RDW Coeff of Leonel 14.0 (11.5-14.5) % Plt Count 338 (130-400) K/uL MPV 8.8 (7.4-10.4) fL Sodium 137 (136-145) mmol/L Potassium 4.0 (3.5-5.1) mmol/L Chloride 102 (98-107) mmol/L Carbon Dioxide 30 (21-32) mmol/L Anion Gap 5.0 (3-11) BUN 7 (7-18) mg/dl Creatinine 0.76 (0.6-1.2) mg/dl Est Cr Clr Drug Dosing 64.5 ml/min Est GFR ( Amer) 84.7 ml/min Est GFR (Non-Af Amer) 73.1 ml/min BUN/Creatinine Ratio 9.5 L (10-20) Glucose 116 H (70-99) mg/dl Calcium 9.3 (8.5-10.1) mg/dl
[2021-05-21] MEDS ORDERED: HEPARIN SOD 5,000 UNIT/0.5 ML VIAL SQ SCH (14:00)
--- NOTE | 2021-05-21 15:53 | Discharge Summary ---
Date of Service May 21, 2021 Admission HPI Per Admitting Provider Alondra presented to [facility] for elective ventral hernia repair with mesh by Dr. Graves. She was found to have 4 hernias intraoperatively and had placement of large mesh. She was hypertensive in PACU and was admitted for postoperative care due to pain. Hospitalist was consulted for comanagement and hypertension. Principal Diagnosis Ventral hernias Discharge Data Allergies Allergy/AdvReac Type Severity Reaction Status Date / Time amoxicillin Allergy Intermediate HIVES Unverified 05/18/21 08:12 latex Allergy blisters Verified 05/18/21 08:12 Consultations 05/18/21 17:16 Consult Hospitalist Routine 05/18/21 17:17 Consult Hospitalist Routine Procedures Performed Operation Date: 05/18/21 09:40 Actual Procedures p Open Ventral Hernia Repair with Mesh - Reanna Graves MD Hospital Course (1) Ventral hernia: Patient was taken to operating room by Dr. graves for elective ventral hernia repair. She had 4 hernias in total and had placement of a large piece of mesh. Due to the extensive surgery, hypertension postoperatively, and moderate postop pain she was admitted to hospital for postoperative management. Hospitalist service consulted for comanagement and hypertension. She was started on Amlodipine. Clear liquid diet was started, IV Dilaudid with PO Percocet and Tylenol were ordered as needed for pain. POD # 1 afebrile, vitals stable, moderate to severe post op pain with limit range of motion due to pain. Diet was continued on clear liquids. Advised to alternate Tylenol with Percocet as needed for pain. POD # 2 afebrile, vitals stable, abdomen was distended and she was not passing any gas. PO Miralax and OK Dulcolax ordered. Narcotics were limited and Ibuprofen was added as needed. She continue to ambulate and work with PT. POD # 3, afebrile, vitals stable, Abdomen still distended and no return of bowel function. Fleet enema was ordered as well as another dose of Miralax. she had bowel movement and flatus after enema. Diet advanced to soft diet for lunch which she tolerated. Pain controlled with Tylenol only. Patient was re-evaluated in afternoon and abdomen is mildly distended but soft and bowel sounds present. Patient was discharged home on POD # 3 in stable condition. Total Time Total Time Spent Total Time Spent (In Minutes): 20 Total Time Includes: Examination of the Patient, Discharge Planning and Medication Reconciliation Discharge Plan Discharge Items Patient Disposition: Home - Self-Care Reason For Visit: Hernia of Abdominal Wall Discharge Diagnosis: Repair of multiple hernias of abdominal wall with mesh Activity: Per Instructions section Non-emergency contact: Surgeon Call non-emergency contact if: you have any medication questions, your pain is worsening, your pain is unusual for you, your pain is concerning for you, you have a fever, your temperature is above 101, your wound has increased redness, your wound has increased drainage and your wound pain has increased Follow-up/Referrals: Raghav Luevano [Primary Care Provider] - 05/25/21 11:30 am Diet: Regular Addtl Attending Provider Instructions: Post-Surgical ~Discharge Instructions Activity Recommendations: - lifting limitation: (15 pounds for 4-6 weeks), - exercise/sex/sports limit: (nonstrenuous for 2 weeks), - driving or machine use limit: (none for 1 week or until pain free and no longer taking narcotic pain medication), - Shower/bathe limit: (may shower) Diet: - Resume previous diet SPECIAL CARE INSTRUCTIONS: - May shower. Let water run over area and pat dry. - [place] will be remove in office - Call the surgeon's office with any questions or concerns - - (ex. temperature higher than 101 degrees F, excessive bleeding or pain). MEDICATIONS: - Resume previous medications unless instructed otherwise by your surgeon. - May alternate extra strength Tylenol with Ibuprofen as needed for pain -650 mg Tylenol every 6 hours as needed - Ibuprofen 600 mg every 6 hours as needed (take with food) Limit duration for only a couple days given history of stomach ulcer/bleeding - Percocet 1 every 4 hours, as needed for pain FOLLOW UP VISIT: - Keep you telephone post op visit as scheduled. - please call the office with any questions or concerns Office number Addtl [facility] Music Therapist Provider Instructions: Your blood pressure has been elevated throughout admission. Amlodipine 5mg daily has been added to better control your blood pressure. Please continue taking this until follow up with Dr. Luevano on 05/25/21 and he can re-evaluate need. Pending Studies at Discharge: No Stand-Alone Forms: EVRYTHNG, Smoking Cessation Medications and DC Order Prescriptions: New amlodipine 5 mg tablet 5 mg PO DAILY Qty: 30 RF: 0 oxycodone-acetaminophen [Percocet] 5-325 mg tablet 1 tab PO Q6H PRN (Reason: pain (scale score 7-10)) Qty: 5 RF: 0 Continued magnesium hydroxide [Milk of Magnesia] 400 mg/5 mL Suspension 400 mg PO HS PRN (Reason: Constipation) RF: 0 aripiprazole [Abilify] 5 mg Tablet 2.5 mg PO HS RF: 0 acetaminophen [Tylenol] 325 mg Capsule 325 mg PO QID PRN (Reason: Pain) RF: 0 cholecalciferol (vitamin D3) [Vitamin D3] 25 mcg (1,000 unit) Tablet 25 mcg PO 5XD RF: 0 Discharge Orders: Discharge Order (Routine); Ordered 05/21/21 Ordered By: Christine Ham Admission Data Admit Date/Time: 05/20/21 14:07 Attending Provider: Reanna Graves Admit Provider: Reanna Graves Primary Care Provider: Raghav Luevano Other Providers: Mariaelena Bear ; Sandi Pascal ; Gerri Cotter ; Josie Briggs ; Ruby Hatfield ; Anabel Marti ; Angelina Calhoun ; Yue Pederson ; Bhargav Mejia ; Larry Cruz ; Barry Gutierrez ; Ying Smith HMayuri ; Edwar Montano KMayuri ; Senia Baer ; Amanda Nelson ; Delmar Botello ; Vero Burkett ; Sylvia Obrien ; Laith Charles ; Saritha Jordan I. ; William Kc ; Teri Vickers ; Dary Espinosa
[2021-05-21 15:57] VITALS: BP 133/67; PULSE 70
== END 2021-05-21 16:42 | disposition home health service (06) | DRG 354 ==
LOC: 3N 07:40 → ASU 07:40
DX: K43.9 Ventral hernia without obstruction or gangrene; Z91.041 Radiographic dye allergy status; K21.9 Gastro-esophageal reflux disease without esophagitis; Z88.1 Allergy status to other antibiotic agents; K59.00 Constipation, unspecified; M81.0 Age-related osteoporosis without current pathological fracture; K56.7 Ileus, unspecified